=== PATIENT | male | born 1940 | race Asian ===

== ENCOUNTER 2017-10-04 06:18 | Emergency (ER) | payer OTHER ==
--- NOTE | 2017-10-04 06:26 | PDOC ---
History of Present Illness - General Chief Complaint: Nausea/Vomiting Stated Complaint: VOMITING/BLOATING Time Seen by Provider: 10/04/17 06:21 History Source: Patient Exam Limitations: No Limitations - History of Present Illness Initial Comments: 10/04/17 06:43 This is a 77-year-old male with history of hypertension who comes in complaining of vomiting times the last 8 hours. Patient said he is more mild vomited multiple times. He said vomiting is associated with some mild stomach discomfort and bloating. Patient said that he had one episode of a loose stool but otherwise no diarrhea. He denies any fevers or chills. He denies anyone else being sick with similar symptoms. Patient said that he did take a Cialis tablet a couple of days ago and is wondering if this could've contributed to his symptoms. PAST MEDICAL HISTORY: Hypertension PAST SURGICAL HISTORY: Prostate FAMILY HISTORY: no pertinant history SOCIAL HISTORY: Pt lives with family and is employed. MEDICATIONS: reviewed ALLERGIES: As per nursing notes Review of Systems General: No fevers or chills, no weakness, no weight loss HEENT: No change in vision. No sore throat,. No ear pain CardioVascular: No chest pain or shortness of breath Respiratory:No cough, or wheezing. Gastrointestinal: + nausea, +vomitting, no diarrhea or constipation, No rectal bleeding Genitourinary: No dysuria, hematuria, or frequency Musculoskeletal: No joint or muscle pain or swelling Neurologic: No headache, vertigo, dizziness or loss of consciousness Psychiatric: nor depression Skin: No rashes or easy bruising Endocrine: no increased thirst or abnormal weight change Allergic: no skin or latex allergy All other systems reviewed and normal Exam: General: Well-nourished well-developed individual, no acute distress HEENT: Throat: Normal, tonsils normal, no erythema or exudate Neck: Supple, no meningeal signs, no lymphadenopathy Eyes::Pupils equal reactive and round, extraocular motion intact Chest: Nontender to palpation Cardiac: S1-S2 normal, regular rate and rhythm, no murmurs rubs or gallops Respiratory: Lungs clear to auscultation bilateral Abdomen: Soft, nondistended, increased bowel sounds, nontender to palpation diffusely Extremities: Warm, dry, no cyanosis, clubbing, or edema Skin: No rashes Neuro: Alert and oriented x3, CN II - XII intact, nonfocal exam with normal strength, normal sensation, normal reflexes, normal gait, Psych: Normal mood and affect Medical decision making: This is a 77 -year-old male who comes in complaining of multiple episodes of vomiting with some mild associated stomach pain/ discomfort. On my exam patient's stomach is nontender however given his age and amount of vomiting will obtain a workup including CBC, comp, UA, EKG, lipase, abdominal flat and upright x-ray. Differential diagnosis includes gastroenteritis, obstruction, vomiting. 10/04/17 07:00 Care of this patient transferred to Dr. Sterling at 7 AM. Case discussed in detail with oncoming Emergency Physician including history, physical exam and ancillary studies. Oncoming Emergency Physician has assumed care for the patient and will complete the evaluation and treatment. Patient is aware of the plan. Pt is clinically unchanged and stable. 10/04/17 06:47 Past History - Past Medical History Allergies/Adverse Reactions: Allergies Allergy/AdvReac Type Severity Reaction Status Date / Time No Known Allergies Allergy Verified 10/04/17 06:20 Home Medications: Ambulatory Orders Amlodipine Besylate [Norvasc -] 10 mg PO DAILY 10/04/17 Tadalafil [Cialis] 10 mg PO DAILY 10/04/17 *DC/Admit/Observation/Transfer Diagnosis at time of Disposition: Abdominal pain with vomiting - Referrals - Patient Instructions - Post Discharge Activity
[2017-10-04 06:38] VITALS: BP 146/93; PULSE 85; TEMP 98.1; BMI 22.7
[2017-10-04] MEDS ORDERED: SODIUM CHLORIDE 1,000 ML IV ONE (06:41)
[2017-10-04] MEDS ORDERED: ONDANSETRON 4 MG/2 ML VIAL IVPB ONE (06:41)
[2017-10-04] MEDS ORDERED: ONDANSETRON 4 MG/2 ML VIAL ONE ×2 (06:43→08:47)
[2017-10-04 07:02] LABS: BASO % 0.6 % (0-2.0); EOS % 0.1 % (0-4.5); LYMPH % 13.4 % (8-40); MCH 31.2 pg (25.7-33.7); MEAN CELL VOLUME 91.6 fl (80-96); MEAN PLT VOLUME 10.9 fl (7.5-11.1); MONO % 3.5 % (3.8-10.2); NEUT % 82.4 % (42.8-82.8); PLATELET COUNT 158 K/MM3 (134-434); RBC 4.81 M/mm3 (4.00-5.60); RDW 12.6 % (11.9-15.9)
[2017-10-04 07:06] LABS: URINE APPEARANCE CLEAR; URINE BILIRUBIN NEGATIVE (NEGATIVE); URINE BLOOD NEGATIVE (NEGATIVE); URINE COLOR YELLOW; URINE GLUCOSE (UA) NEGATIVE (NEGATIVE); URINE KETONE 1+ (NEGATIVE); URINE LEUK ESTERASE NEGATIVE (NEGATIVE); URINE NITRITE NEGATIVE (NEGATIVE); URINE UROBILINOGEN NEGATIVE mg/dL (0.2-1.0)
[2017-10-04 07:07] LABS: URINE PROTEIN 2+ (NEGATIVE)
[2017-10-04 07:10] LABS: EPI CELLS RARE /HPF (FEW); URINE MUCUS FEW
[2017-10-04] MEDS ORDERED: SIMETHICONE 80 MG TAB.CHEW (FP) PO STA (07:59)
[2017-10-04] MEDS ORDERED: SIMETHICONE 80 MG TAB.CHEW (FP) ONE (08:09)
[2017-10-04 08:22] LABS: LIPASE 147 U/L (73-393)
[2017-10-04 08:23] LABS: ALBUMIN 4.6 g/dl (3.4-5.0); ANION GAP 11 (8-16); BLOOD UREA NITROGEN 19 mg/dL (7-18); CALCIUM 9.1 mg/dL (8.5-10.1); CHLORIDE 101 mmol/L (98-107); CO2 25 mmol/L (21-32); CREATININE 1.3 mg/dL (0.7-1.3); GLUCOSE,RANDOM 155 mg/dL (74-106); POTASSIUM 4.1 mmol/L (3.5-5.1); SGOT/AST 15 U/L (15-37); SGPT/ALT 30 U/L (12-78); SODIUM 137 mmol/L (136-145)
[2017-10-04 08:25] LABS: ALK PHOS 82 U/L (45-117); BILIRUBIN,TOTAL 0.9 mg/dL (0.2-1.0); TOT PROT 8.6 g/dl (6.4-8.2)
--- NOTE | 2017-10-04 09:24 | PDOC ---
*Physical Exam - Vital Signs Last Vital Signs Temp Pulse Resp BP Pulse Ox 98.1 F 85 18 146/93 98 10/04/17 06:31 10/04/17 06:31 10/04/17 06:31 10/04/17 06:31 10/04/17 06:31 - Physical Exam General Appearance: Yes: Nourished, Appropriately Dressed, Moderate Distress HEENT: positive: [place] Neck: positive: Supple Respiratory/Chest: positive: Lungs Clear Cardiovascular: positive: Regular Rhythm Gastrointestinal/Abdominal: positive: Flat, Soft. negative: Normal Bowel Sounds , Organomegaly, Pulsatile Mass Rectal Exam: positive: deferred Extremity: positive: Normal Capillary Refill Integumentary: positive: Normal Color, Dry, Warm Neurologic: positive: director quality systems II-XII NML intact, Fully Oriented, Alert, Normal Mood/ Affect ED Treatment Course - LABORATORY CBC & Chemistry Diagram: 10/04/17 06:39 10/04/17 06:39 - ADDITIONAL ORDERS Additional order review: Laboratory Results 10/04/17 10/04/17 10/04/17 06:39 06:39 06:39 Sodium Potassium Chloride Carbon Dioxide Anion Gap BUN Creatinine Creat Clearance w eGFR Random Glucose Calcium Total Bilirubin AST ALT Alkaline Phosphatase Creatine Kinase Cancelled Troponin I Cancelled Total Protein Albumin Lipase Urine Color Yellow Urine Appearance Clear Urine pH 7.0 Ur Specific [place] 1.024 Urine Protein 2+ H Urine Glucose (UA) Negative Urine Ketones 1+ H Urine Blood Negative Urine Nitrite Negative Urine Bilirubin Negative Urine Urobilinogen Negative Ur Leukocyte Esterase Negative Urine WBC (Auto) <1 Urine RBC (Auto) 5 Ur Epithelial Cells Rare Urine Mucus Few 10/04/17 10/04/17 06:39 06:39 Sodium 137 Potassium 4.1 Chloride 101 Carbon Dioxide 25 Anion Gap 11 BUN 19 H Creatinine 1.3 Creat Clearance w eGFR 53.82 Random Glucose 155 H Calcium 9.1 Total Bilirubin 0.9 AST 15 ALT 30 Alkaline Phosphatase 82 Creatine Kinase 115 Troponin I < 0.02 Total Protein 8.6 H Albumin 4.6 Lipase 147 Urine Color Urine Appearance Urine pH Ur Specific [place] Urine Protein Urine Glucose (UA) Urine Ketones Urine Blood Urine Nitrite Urine Bilirubin Urine Urobilinogen Ur Leukocyte Esterase Urine WBC (Auto) Urine RBC (Auto) Ur Epithelial Cells Urine Mucus 10/04/17 06:39 RBC 4.81 MCV 91.6 MCHC 34.0 RDW 12.6 MPV 10.9 Neutrophils % 82.4 Lymphocytes % 13.4 Monocytes % 3.5 L Eosinophils % 0.1 Basophils % 0.6 - Medications Given in the ED: ED Medications Discontinued Medications Generic Name Dose Route Start Last Admin Trade Name Anisa PRN Reason Stop Dose Admin Sodium Chloride 1,000 mls @ 1,000 mls/hr 10/04/17 06:41 10/04/17 06:51 Normal Saline - IV 10/04/17 07:40 1,000 mls/hr .Q1H ONE Administration Ondansetron HCl 8 mg 10/04/17 06:41 10/04/17 06:51 Zofran Injection IVPB 10/04/17 06:42 8 mg ONCE ONE Administration Simethicone 80 mg 10/04/17 07:59 10/04/17 08:11 Mylicon - PO 10/04/17 08:00 80 mg ONCE STA Administration Medical Decision Making - Medical Decision Making Received patient at shift change from Dr Mejia. Patient still nauseaous, attempted po fluids, patient vomited Observed for one more hour, iv fluids, restarted, Zofran, Pepcid 10/04/17 09:06 *DC/Admit/Observation/Transfer Diagnosis at time of Disposition: Abdominal pain with vomiting, Gastroenteritis - Discharge Dispostion Disposition: HOME Condition at time of disposition: Improved Admit: No - Referrals - Patient Instructions Printed Discharge Instructions: DI for Vomiting -- Adult, DI for Nausea -- Adult Additional Instructions: Fluids small amounts, Zofran every 4 hours as needed. If symptoms persist you may return any time to ER or call your [employer] Feedback - Post Discharge Activity
[2017-10-04] MEDS ORDERED: FAMOTIDINE 20 MG/50 ML IVPB 20 MG/50 ML MG IVPB ONE (09:28)
[2017-10-04] MEDS ORDERED: ONDANSETRON 4 MG/2 ML VIAL IVPUSH ONE (09:49)
[2017-10-04] MEDS ORDERED: SODIUM CHLORIDE 1,000 ML IV STA (09:49)
[2017-10-04] MEDS ORDERED: FAMOTIDINE IV 20 MG/12 ML VIAL IVPB ONE (09:50)
--- NOTE | 2017-10-04 11:56 | EKG ---
Test Reason : Blood Pressure : / mmHG Vent. Rate : 072 BPM Atrial Rate : 072 BPM P-R Int : 184 ms QRS Dur : 084 ms QT Int : 398 ms P-R-T Axes : 039 -17 053 degrees QTc Int : 435 ms SINUS RHYTHM WITH OCCASIONAL PREMATURE VENTRICULAR COMPLEXES AND FUSION COMPLEXES POSSIBLE INFERIOR INFARCT , AGE UNDETERMINED ABNORMAL ECG NO PREVIOUS ECGS AVAILABLE Confirmed by MD Norma, Ruiz ([id number]) on 10/04/2017 11:56:35 AM Referred By: MD OLIVERA Confirmed By:Ruiz Green MD
== END 2017-10-04 10:56 | disposition home or self-care (01) ==
LOC: FER 06:18
PROC: 3E033GC Introduction of Other Therapeutic Substance into Peripheral Vein, Percutaneous Approach (ICD-10-PCS; principal; 2017-10-04)
PROC: 3E0337Z Introduction of Electrolytic and Water Balance Substance into Peripheral Vein, Percutaneous Approach (ICD-10-PCS; 2017-10-04)
DX: R10.9 Unspecified abdominal pain (principal); R11.10 Vomiting, unspecified
CPT/HCPCS: 36415; 71046-TC-FY; 74019-TC-FY; 80053; 81003; 81015; 82550; 83690; 84484; 85025; 93005; 99282-25

== ENCOUNTER 2021-10-30 19:30 | Emergency (ER) | payer OTHER ==
[2021-10-30 19:41] VITALS: BP 168/84; PULSE 67; TEMP 99.2; BMI 22.7
[2021-10-30 20:19] LABS: ALBUMIN 4.2 g/dl (3.4-5.0); CALCIUM 9.4 mg/dl (8.5-10); CREATININE 1.4 mg/dl (0.55-1.3); TOT PROT 7.8 g/dl (6.4-8.2)
[2021-10-30 20:24] LABS: BASO % 0.2 % (0-2.0); EOS % 0.7 % (0-4.5); HEMATOCRIT 41.2 % (35.4-49); HEMOGLOBIN 13.8 GM/dL (11.7-16.9); LYMPH % 9.9 % (8-40); MCH 30.1 pg (25.7-33.7); MCHC 33.6 g/dl (32.0-35.9); MEAN CELL VOLUME 89.7 fl (80-96); MONO % 5.7 % (3.8-10.2); NEUT % 83.5 % (42.8-82.8); PLATELET COUNT 176 10^3/uL (134-434); RBC 4.59 M/mm3 (4.00-5.60); RDW 12.8 % (11.9-15.9); WHITE BLOOD COUNT 13.3 K/mm3 (4.0-10.0)
[2021-10-30] MEDS ORDERED: ONDANSETRON 4 MG/2 ML VIAL IVPB ONE (22:08)
[2021-10-30] MEDS ORDERED: ONDANSETRON 4 MG/2 ML VIAL ONE (22:10)
[2021-10-31] MEDS ORDERED: ONDANSETRON *ODT* 4 MG TABLET SL ONE (00:03)
[2021-10-31] MEDS ORDERED: ONDANSETRON *ODT* 4 MG TABLET ONE (00:07)
== END 2021-10-31 00:15 | disposition home or self-care (01) ==
LOC: FER 19:30
PROC: 3E033GC Introduction of Other Therapeutic Substance into Peripheral Vein, Percutaneous Approach (ICD-10-PCS; principal; 2021-10-30)
DX: K52.9 Noninfective gastroenteritis and colitis, unspecified (principal)
CPT/HCPCS: 36415; 71046-TC-FY; 74019-TC-FY; 80053; 81003; 84484; 85025; 93005; 99285-25; Q0162